=== PATIENT | female | born 1950 | race Two or more races ===

== ENCOUNTER → 2017-10-03 17:21 | Outpatient (CLI) | payer OTHER | END | disposition home or self-care (01) | LOC: RAD 17:21 | DX: S42.254A Nondisplaced fracture of greater tuberosity of right humerus, initial encounter for closed fracture (principal) ==

== ENCOUNTER 2017-10-15 15:07 | Outpatient (CLI) | payer OTHER | END 2017-10-15 16:12 | disposition home or self-care (01) | LOC: RAD 501 15:07 | DX: M25.511 Pain in right shoulder (principal) ==